=== PATIENT | female | born 1985 | race Caucasian/White ===

== ENCOUNTER 2019-03-26 04:48 | Inpatient (IN) | payer OTHER ==
[~2019-03-26] VITALS: Ht 177.8 cm; Wt 84.5 kg
[2019-03-26 05:33] VITALS: BP 149/86
[2019-03-26 06:44] VITALS: BP 131/79
== END 2019-03-26 08:20 | disposition left against medical advice (07) | DRG 833 ==
LOC: LDOP 04:48 → LDIP 07:11 → UNDOADMIN 07:15
PROVIDERS: ADMIT Student in an Organized Health Care Education/Training Program; ATTEND Student in an Organized Health Care Education/Training Program
DX: O99.333 Smoking (tobacco) complicating pregnancy, third trimester (principal); Z3A.37 37 weeks gestation of pregnancy; F17.210 Nicotine dependence, cigarettes, uncomplicated
CPT/HCPCS: 59025; 76819; 99201; G0378; G0463